=== PATIENT | male | born 1950 | race Caucasian/White ===

== ENCOUNTER → 2017-06-04 | Outpatient (CLI) | payer OTHER ==
[~2017-06-04] MED LIST: ALLOPURINOL 10100 M1 PO; ASPIRIN EC325 M1 PO; ATENOLOL 50MG T50 M1 PO; CARDIZEM CD180 MG; CARDIZEM CD180 MG PO; CARDURA; CARTIA; COUMADIN 3 MG TA3 MG; COUMADIN 5 MG TA5 M1; COZAAR100 MG PO; ELIQUIS5 MG PO; ENOXAPARIN120 MG/0.8 SQ; FLECAINIDE ACE150 MG PO; INDOMETHACIN 2525 MG PO; PERCOCET 5-3251 EACH PO; SIMVASTATIN40 MG PO; ZOCOR; ZOCOR 10 MG TAB10 MG
--- NOTE | ~2017-06-04 | 2DMMODE ---
[facility] [address] [place] [address] 2 D/M-MODE ECHOCARDIOGRAM Name: JANAK GRIMM CASH Room #: REG [facility]#: [id number] Admission: 06/04/17 Attend Phys: Nathan Menendez MD Discharge: Date of : 50 Date of Service: 06/04/17 1021 Report #: [id number] THIS REPORT FOR: //name// APPROVED REPORT Study performed: 06/04/2017 09:00:25 EXAM: Comprehensive 2D, Doppler, and color-flow Echocardiogram Patient Location: Echo lab Status: routine BSA: 2.40 BP: 182/100 mmHg Other Information Study Quality: Technically Difficult Technically limited study due to body habitus. Indications Atrial Fibrillation Echo Enhancing Agent Indication: Endocardial border delineation Agent(s) / Amount(s) Used: Optison 3 cc 2D Dimensions RVDd: 31.21 mm LVEF(%): 63.11 (>50%) IVSd: 14.96 (7-11mm) LVOT Diam: 18.81 (18-24mm) LVDd: 43.97 mm PWd: 13.93 (7-11mm) Ascending Ao: 33.03 (22-36mm) LVDs: 29.03 (25-40mm) Aortic Root: 38.76 mm IVC: 18.00 mm Garcia's LVEF: 63.11 % Volumes Left Atrial Volume (Systole) Single Plane 4CH: 49.53 mL Single Plane 2CH: 35.75 mL LA ESV Index: 20.00 mL/m2 Aortic Valve AoV Peak Anthony.: 0.82 m/s AO Peak Gr.: 2.68 mmHg LVOT Max P.85 mmHg LVOT Max V: 0.68 m/s ALONSO Vmax: 2.31 cm2 [facility] [place] [address] 2 D/M-MODE ECHOCARDIOGRAM Name: JANAK GRIMM CASH Room #: REG [facility] [id number] Admission: 06/04/17 Attend Phys: Nathan Menendez MD Discharge: Date of : 50 Date of Service: 06/04/17 1021 Report #: [id number] Mitral Valve E/A Ratio: 1.3 MV Decel. Time: 223.03 ms MV E Max Anthony.: 0.67 m/s MV A Anthony.: 0.52 m/s MV PHT: 64.68 ms IVRT: 93.43 ms Pulmonary Valve PV Peak Anthony.: 0.86 m/s PV Peak Gr.: 2.93 mmHg Pulmonary Vein P Vein S: 0.28 m/s P Vein A: 0.27 m/s P Vein D: 0.37 m/s P Vein A Dur.: 121.1 msec P Vein S/D Ratio: 0.76 Tricuspid Valve RAP Estimate: 5.00 mmHg Left Ventricle The left ventricle is normal size. Mild concentric left ventricular hypertrophy. The left ventricular systolic function is normal. The left ventricular ejection fraction is within the normal range. LVEF is 55%. Moderate diastolic dysfunction is present (pseudonormal filling). Right Ventricle The right ventricle is normal size. The right ventricular systolic function is normal. Atria The left atrium size is normal. Previous YUKI 08/11/2016 noted small PFO, unable to detect due to patient body habitus. The right atrium size is normal. Aortic Valve The aortic valve is normal in structure. No aortic regurgitation is present. There is no aortic valvular stenosis. Mitral Valve The mitral valve is normal in structure. There is no mitral valve regurgitation noted. No evidence of mitral valve stenosis. Tricuspid Valve The tricuspid valve is normal in structure. There is no tricuspid [facility] [address] [place] [address] 2 D/M-MODE ECHOCARDIOGRAM Name: LINDAJANAK ÁLVAREZ CASH Room #: REG CL [facility]#: [id number] Admission: 06/04/17 Attend Phys: Nathan Menendez MD Discharge: Date of : 50 Date of Service: 06/04/17 1021 Report #: [id number] valve regurgitation noted. Unable to assess PA pressure. Pulmonic Valve Pulmonic valve is not well visualized. Trace pulmonic regurgitation noted per doppler. Great Vessels The aortic root is normal in size. IVC is normal in size and collapses >50% with inspiration. <Conclusion> The left ventricle is normal size. Mild concentric left ventricular hypertrophy. The left ventricular systolic function is normal. Moderate diastolic dysfunction is present (pseudonormal filling). The right ventricle is normal size. There is no aortic valvular stenosis. There is no mitral valve regurgitation noted. <ELECTRONICALLY SIGNED> By: Nathan Menendez MD 06/04/17 1021 1021 1021 Nathan Menendez MD /INF
== END ==
LOC: CV 05-18 11:22
DX: I50.30 Unspecified diastolic (congestive) heart failure (principal); I51.7 Cardiomegaly; I48.91 Unspecified atrial fibrillation

== ENCOUNTER → 2018-03-30 | Outpatient (CLI) | payer OTHER ==
[~2018-03-30] MED LIST changes: +GREENS PO; +TURMERIC500 M2 PO; +VITAMIN D1000 UNI1 PO; +[UNRECOGNIZED DRUG - OTHER] PO
--- NOTE | ~2018-03-30 | P ---
[facility] [place] [address] [place] [address] PROCEDURE REPORT Name: ALFAJANAK CASH Room #: REG [facility]#: [id number] Admission: 03/30/18 Attend Phys: Fahad Guzman MD Discharge: Date of : 50 Report #: [id number] THIS REPORT FOR: //name// CC: Nathan Arnold DATE OF SERVICE: 03/30/2018 PREOPERATIVE DIAGNOSES: 1. Atrial fibrillation. 2. Palpitations. HISTORY OF PRESENT ILLNESS: The patient is a 68-year-old with history of prior AFib with recurrent palpitations, who is here for implantation of an implantable loop recorder. PROCEDURES PERFORMED: Implantation of loop recorder, CPT CODE 42535. DESCRIPTION OF PROCEDURE: The patient underwent informed consent. Risks, benefits were reviewed. Next, I injected lidocaine at the site of the procedure. Incision was made. The device was the skin. A single suture was placed using 3-0 Vicryl and Steri-Strip was placed. There were no complications and no significant bleeding. The implanted device was a [employer], model number [id number], serial number [id number]. CONCLUSIONS: Successful implantation of an implantable loop recorder. <ELECTRONICALLY SIGNED> By: Fahad Guzman MD 04/01/18 0853 [id number] MD abner Figueroa
[2018-03-30 12:38] VITALS: BP 153/93
== END | disposition home or self-care (01) ==
LOC: CATH 09:18
DX: I48.91 Unspecified atrial fibrillation (principal); R00.2 Palpitations; Z88.8 Allergy status to other drugs, medicaments and biological substances; Z79.01 Long term (current) use of anticoagulants

== ENCOUNTER 2018-11-01 06:35 | Observation (INO) | payer OTHER ==
[~2018-11-01] VITALS: Ht 182.9 cm; Wt 125.2 kg
--- NOTE | ~2018-11-01 | P ---
[facility] [place] [address] [place] [address] PROCEDURE REPORT Name: JANAK GRIMM CASH Room #: 207-P [facility] Francisco J Solorio#: [id number] Admission: 11/01/18 Attend Phys: Fahad Guzman MD Discharge: 11/02/18 Date of : 50 Report #: [id number] THIS REPORT FOR: //name// CC: Nathan Arnold DATE OF SERVICE: 11/02/2018 PREOPERATIVE DIAGNOSIS: Atrial fibrillation. POSTOPERATIVE DIAGNOSIS: Atrial fibrillation. The patient is a 68-year-old with history of atrial fibrillation, status post prior ablation in 2004 with clinical recurrence. He is here for repeat AFib ablation. PROCEDURES PERFORMED: 1. Atrial fibrillation ablation, CPT code 55893. 2. Programmed stimulation pacing after IV drug infusion, CPT code 86695. 3. 3D mapping, CPT code 35892. 4. Intracardiac echocardiogram, CPT code 63812. 5. Focal ablation, CPT code 23823. ANESTHESIA: The patient underwent general anesthesia with no anesthesia related complications. DESCRIPTION OF PROCEDURE: The patient underwent informed consent. We discussed the details of the procedure including the risks, which include, but not limited to, bleeding, infection, vascular damage and cardiac perforation. He understood these risks and is willing to proceed. The patient was brought to the EP laboratory in a fasting and sedated state, prepped and draped in a sterile fashion. I obtained access to the bilateral femoral veins and placed 8-Central African, 6-Central African, 7-Central African and 9-Central African short sheaths using the modified Seldinger technique. Next, under fluoroscopy, I placed a decapolar catheter easily in the coronary sinus and then placed an ice catheter into the right atrium. Using intracardiac ultrasound, I evaluated the anatomy of the left atrium. He had evidence of a left common ostium and right superior and right inferior pulmonary veins. This 3D image was merged with his cardiac CT scan and the patient was then systemically heparinized and a transseptal was performed using an SL1 sheath and a Letha needle. I was able to get my wire across into the left atrium, but could not advance the sheath into the left atrium. Therefore, I used a 6 mm x 4 cm balloon to dilate the interatrial septum and then, I was able to advance my sheath into the left atrium. Next, I created a detailed 3D voltage map of the left atrium, which showed that the [facility] [address] [place] [address] PROCEDURE REPORT Name: LINDAHENRIJANAK CASH Room #: 207-P [facility] Francisco J Solorio#: [id number] Admission: 11/01/18 Attend Phys: Fahad Guzman MD Discharge: 11/02/18 Date of : 50 Report #: [id number] right-sided veins were isolated, but the right common ostium was reconnected. A second transseptal was then performed using another SL1 sheath and via this sheath, I placed a [employer] Rivas SmartTouch ThermoCool ablation catheter. Next, I re-isolated the right common ostium, which was reconnected along the posterior and inferior aspect of the ostium, this isolated quite nicely. There was then evidence of entrance and exit block. I reinforced my line along this region. Next, I performed a roofline along the left atrium and I connected the left common ostium to the right superior pulmonary veins. Ablation was completed until there was no further potentials in this region and appeared there was now block across the roof. Pre ablation, the patient was in sinus rhythm with a sinus cycle length of 1060 milliseconds, IA interval 185 milliseconds, QRS duration 90 milliseconds, QT interval 400 milliseconds. Post ablation, I performed an EP study. The patient was started on isoproterenol 2 mcg. AV block was noted at 300 milliseconds. Atrial ERP was noted at 240 milliseconds at a [address] cycle length. Aggressive atrial burst pacing was performed and there was no atrial fibrillation. There were some short bursts of atrial tachycardia lasting 5 beats. As such, the isoproterenol was discontinued and post ablation, his atrial rate was 885 milliseconds, IA interval 190 milliseconds, QRS duration 90 milliseconds, QT interval 450 milliseconds. As such, I used intracardiac ultrasound to verify there is no pericardial effusion. Next, the patient received systemic protamine and once ACT was within acceptable range, all catheters and sheaths were pulled and hemostasis was obtained. The patient awoke neurologically and hemodynamically intact with no complications. CONCLUSIONS: 1. Successful atrial fibrillation ablation with successful re-isolation of the left common ostium. 2. Successful creation of a roofline with evidence of block. 3. Normal electrophysiology study with no inducible arrhythmias on or off isoproterenol infusion. By: [id number] Fahad Guzman MD /nt
--- NOTE | ~2018-11-01 | D ---
[facility] [place] [address] [place] [address] DISCHARGE SUMMARY Name: JANAK GRIMM CASH Room #: 207-P [facility] Francisco J MNona#: [id number] Admission: 11/01/18 Attend Phys: Fahad Guzman MD Discharge: Date of : 50 Report #: [id number] THIS REPORT FOR: //name// CC: Nathan Guzman Cale Arnold DISCHARGE DIAGNOSIS: Atrial fibrillation. PROCEDURES PERFORMED: AFib ablation. HISTORY OF PRESENT ILLNESS: The patient is a 68-year-old male with a history of recurrent atrial fibrillation, status post prior AFib ablation back in 2014. He was here for repeat ablation as he has had recent recurrence of his atrial fibrillation. The patient underwent successful repeat ablation. He was found to have reconnection of his left common ostium. Both right-sided veins remained isolated. I re-isolated the left common ostium and also created a roofline as well. An EP study on isoproterenol showed no other inducible arrhythmias post ablation. HOSPITAL COURSE: The patient was monitored in the CCU overnight. He had no events. On telemetry, he remained in sinus rhythm. On the day of discharge, he denied any chest pain, shortness of breath, fevers, chills or groin discomfort. PHYSICAL EXAMINATION: GENERAL: On exam, in general, he was in no acute distress; alert and oriented x 3. HEENT: Oropharynx was clear. NECK: Supple, with no thyromegaly. HEART: Regular rate and rhythm, with no murmurs, rubs or gallops. LUNGS: Clear to auscultation bilaterally. ABDOMEN: Soft, nontender and nondistended. GENITOURINARY: His bilateral groins showed no hematoma or bruising. SUMMARY: As such, he was deemed stable for discharge home. Discharge instructions were reviewed. He will continue on Eliquis 5 mg b.i.d. and flecainide 50 b.i.d. He will see my nurse practitioner in 2 weeks and see me back in 3 months. We discussed the importance of weight loss and having a sleep study to treat any undiagnosed sleep apnea. By: [id number] Fahad Guzman MD /nt
[2018-11-01 07:13] VITALS: BP 168/88
[2018-11-01 07:19] LABS: ABSOLUTE NEUTROPHILS 4.4 thou/uL (1.4-8.2); BASOPHILS 0.8 % (0.0-2.0); EOSINOPHILS 2.8 % (0.0-3.0); HEMATOCRIT 46.6 % (42.0-52.0); HEMOGLOBIN 15.3 gm/dL (14.0-18.0); LYMPHOCYTES 28.4 % (24.0-44.0); MCH 29.1 pg (26.0-34.0); MCHC 32.8 g/dL (28.0-37.0); MCV 88.7 fL (80.0-100.0); MONOCYTES 6.3 % (1.0-8.0); PLATELET COUNT 228 thou/uL (150-400); POLYS 61.7 % (36.0-66.0); RBC 5.26 mil/uL (4.50-6.00); RDW 13.7 % (10.5-14.5); WBC 7.1 thou/uL (4.0-11.0)
[2018-11-01] MEDS ORDERED: ELIQUIS5 MG PO (07:20)
[2018-11-01] MEDS ORDERED: FLECAINIDE ACET50 M1 PO (07:20)
[2018-11-01 07:21] LABS: CALCIUM 9.5 mg/dL (8.5-10.1); POTASSIUM 4.5 mmol/L (3.5-5.1)
[2018-11-01 07:27] LABS: ALBUMIN 3.7 g/dL (3.4-5.0); TOTAL BILIRUBIN 0.4 mg/dL (<0.1-1.0); TOTAL PROTEIN 8.1 g/dL (6.4-8.2)
[2018-11-01 07:45] LABS: APTT 24.4 Seconds (24.5-32.8); INR 1.1; PROTIME 10.9 Seconds (9.3-11.4)
[2018-11-01 13:04] VITALS: BP 138/81
--- NOTE | 2018-11-01 13:25 | NUR ---
PT ARRIVED TO UNIT AT APPROX 1300 WITH SIGNIFICANT OTHER AND BELONGINGS. PT AOX4, VSS, NO C/O PAIN, IN NO APPARENT DISTRESS. GROIN SITES POST ABLATION CDI, NO HEMATOMA. PT ON BEDREST PER ORDER. TELEMETRY PUT ON, ADMIT STRIP PRINTED AND DOCUMENTED. WILL ACKNOWLEDGE AND IMPLEMENT ORDERS. WILL CONTINUE TO MONITOR AND FOLLOW POC.
[2018-11-01 16:00] VITALS: BP 134/75
--- NOTE | 2018-11-01 18:13 | NUR ---
PT AOX4, ASSESSMENTS CHARTED. MEDS GIVEN PER NOV. PT CONTINUES TO BE ON BEDREST POST ABLATION. VSS, GROIN SITES CDI, NO HEMATOMA. PT DENIES PAIN, CHEST PAIN, AND ANY OTHER CONCERNS. PT NSR ON MONITOR. SIGNIFICANT OTHER AT BEDSIDE. NO S/SX OF CARDIAC OR RESP DISTRESS NOTED. WILL CONTINUE TO MONITOR AND FOLLOW POC.
[2018-11-01 20:15] VITALS: BP 146/75
[2018-11-02 00:20] VITALS: BP 135/63
--- NOTE | 2018-11-02 03:37 | NUR ---
ASSUMED PT CARE AT 1900. PT A/OX4, VITAL SIGNS STABLE, ASSESSMENT CHARTED. ASSESSMENT CHARTED. LEFT AND RIGHT GROIN SITES DRY, CLEAN AND INTACT. PT AMBULATED TO THE BATHROOM INDEPENDEDNTLY. NO COMPLAINTS OF PAIN/CHEST PAIN. NSR ON THE MONITOR. PROGRESSING TOWARD PLAN OF CARE. WILL CONTINUE TO MONITOR.
[2018-11-02 03:54] VITALS: BP 145/65
[2018-11-02 07:40] VITALS: BP 131/64
[2018-11-02 09:03] VITALS: BP 131/64
--- NOTE | 2018-11-02 09:33 | NUR ---
ASSUMED CARE OF PT AT SHIFT CHANGE. ASSESSMENT CHARTED. MEDS GIVEN PER NOV. PT AOX4, NO C/O PAIN, UP AD RADHA, VOIDING FREELY. DENIES CHEST PAIN, SOA, OR ANY OTHER CONCERNS. POST CATH GROIN SITES CDI, NO HEMATOMA. NO S/SX OF CARDIAC OR RESP DISTRESS NOTED. NSR ON MONITOR. DC ORDERS ACKNOWLEDGED AND IMPLEMENTED. PT LEFT UNIT AT APPROX 0928 BY WHEELCHAIR WITH TRANSPORT AND WITH SIGNIFICANT OTHER. IV REMOVED, TELE OFF, PT LEFT WITH ALL BELONGINGS.
[2018-11-02 09:36] VITALS: BP 131/64
== END 2018-11-02 09:28 | disposition home or self-care (01) ==
LOC: CATH 06:35 → 2N 12:57 → CATH 14:47 → ENTRNSPT 11-02 09:20 → EDTRNSPTSTS 11-02 09:25 → 2N 11-02 09:28
PROVIDERS: ADMIT Internal Medicine Cardiovascular Disease
DX: I48.91 Unspecified atrial fibrillation (principal); I10 Essential (primary) hypertension; E78.5 Hyperlipidemia, unspecified; F17.200 Nicotine dependence, unspecified, uncomplicated; Z79.899 Other long term (current) drug therapy; Z96.642 Presence of left artificial hip joint
CPT/HCPCS: 62110; 62900; 65020; 65040; 65131; 70005

== ENCOUNTER → 2020-01-24 | Outpatient (CLI) | payer OTHER ==
[~2020-01-24] MED LIST changes: +FLECAINIDE ACET50 M1 PO
== END ==
LOC: SJCVC 08:58
DX: R94.31 Abnormal electrocardiogram [ECG] [EKG] (principal); I48.19 Other persistent atrial fibrillation; I48.91 Unspecified atrial fibrillation

== ENCOUNTER → 2020-01-30 | Outpatient (CLI) | payer OTHER ==
[~2020-01-30] VITALS: Ht 182.9 cm; Wt 117.9 kg
[~2020-01-30] MED LIST changes: +CARTIA XT120 M1 PO
[2020-01-30 07:25] LABS: ABSOLUTE NEUTROPHILS 2.7 thou/uL (1.4-8.2); BASOPHILS 0.7 % (0.0-2.0); EOSINOPHILS 2.2 % (0.0-3.0); HEMATOCRIT 41.4 % (42.0-52.0); HEMOGLOBIN 13.8 gm/dL (14.0-18.0); LYMPHOCYTES 37.6 % (24.0-44.0); MCH 29.8 pg (26.0-34.0); MCHC 33.3 g/dL (28.0-37.0); MCV 89.6 fL (80.0-100.0); MONOCYTES 7.7 % (1.0-8.0); PLATELET COUNT 207 thou/uL (150-400); POLYS 51.8 % (36.0-66.0); RBC 4.62 mil/uL (4.50-6.00); RDW 14.3 % (10.5-14.5); WBC 5.3 thou/uL (4.0-11.0)
[2020-01-30 07:28] VITALS: BP 137/90
[2020-01-30 07:34] LABS: CALCIUM 8.9 mg/dL (8.5-10.1); CREATININE 1.2 mg/dL (0.7-1.3); POTASSIUM 4.4 mmol/L (3.5-5.1)
[2020-01-30 07:40] LABS: ALBUMIN 3.5 g/dL (3.4-5.0); TOTAL BILIRUBIN 0.6 mg/dL (<0.1-1.0); TOTAL PROTEIN 6.9 g/dL (6.4-8.2)
[2020-01-30 07:46] LABS: APTT 31.9 Seconds (24.5-32.8); INR 1.2
--- NOTE | 2020-02-03 14:28 | P ---
[facility] [place] [address] PROCEDURE REPORT Name: JANAK GRIMM CASH Room #: REG [facility]#: [id number] Admission: 01/30/20 Attend Phys: Fahad Guzman MD Discharge: Date of : 50 Report #: [id number] THIS REPORT FOR: cc: Cale Arnold,Fahad Anthony MD ~ CC: Fahad Arnold DATE OF SERVICE: 01/30/2020 CARDIOVERSION PREOPERATIVE DIAGNOSIS: Atrial fibrillation. POSTOPERATIVE DIAGNOSIS: Atrial fibrillation. PROCEDURES PERFORMED: DC cardioversion. DESCRIPTION OF PROCEDURE: The patient underwent informed consent. He was prepped in a standard fashion. He was sedated by the Anesthesiology service. He underwent a 200 joule synchronized cardioversion, which failed to restore sinus rhythm. He underwent a second 200 joule synchronized cardioversion, which resulted in sinus rhythm. There were no procedure related complications. CONCLUSIONS: Successful DC cardioversion with religious of sinus rhythm. <ELECTRONICALLY SIGNED> By: Fahad Guzman MD 02/03/20 1428 0830 0907 Fahad Guzman MD /nt
== END | disposition home or self-care (01) ==
LOC: CATH 06:40
PROVIDERS: Internal Medicine Cardiovascular Disease
DX: I48.91 Unspecified atrial fibrillation (principal); I10 Essential (primary) hypertension; E78.5 Hyperlipidemia, unspecified; E66.09 Other obesity due to excess calories; F17.210 Nicotine dependence, cigarettes, uncomplicated; Z90.49 Acquired absence of other specified parts of digestive tract; Z96.642 Presence of left artificial hip joint; Z98.890 Other specified postprocedural states; Z79.899 Other long term (current) drug therapy; Z79.01 Long term (current) use of anticoagulants
CPT/HCPCS: 62110; 62900

== ENCOUNTER → 2020-03-01 | Outpatient (CLI) | payer OTHER | LOC: SJCVC 12:50 | PROVIDERS: ATTEND Internal Medicine Cardiovascular Disease | DX: I48.0 Paroxysmal atrial fibrillation (principal); M10.9 Gout, unspecified; E78.00 Pure hypercholesterolemia, unspecified; I10 Essential (primary) hypertension; F17.200 Nicotine dependence, unspecified, uncomplicated; Z90.49 Acquired absence of other specified parts of digestive tract; Z79.899 Other long term (current) drug therapy ==

== ENCOUNTER → 2020-09-18 | Outpatient (CLI) | payer OTHER ==
--- NOTE | ~2020-09-18 | P ---
[facility] [place] [address] [place] [address] PROCEDURE REPORT Name: JANAK GRIMM CASH Room #: REG [facility]min#: [id number] Admission: 09/18/20 Attend Phys: Fahad Guzman MD Discharge: Date of : 50 Report #: [id number] THIS REPORT FOR: cc: Cale Arnold Ronald D. DO Couchonnal, Luis F. MD ~ PROCEDURE: Implantable loop recorder removal. PREOPERATIVE DIAGNOSIS: Implantable loop recorder battery . POSTOPERATIVE DIAGNOSIS: Implantable loop recorder battery . DESCRIPTION OF PROCEDURE: The patient was prepped in a standard and sterile fashion. Incision was made. The device was removed. A single layer of suture was performed and a dressing was placed. There were no procedure related complications. CONCLUSIONS: Successful explantation of a loop recorder. By: [id number] Fahad Guzman MD /nt
[2020-09-18 11:20] VITALS: BP 166/77
== END | disposition home or self-care (01) ==
LOC: CATH 08:00
PROVIDERS: ATTEND Internal Medicine Cardiovascular Disease
DX: Z45.09 Encounter for adjustment and management of other cardiac device (principal); I48.91 Unspecified atrial fibrillation; Z98.890 Other specified postprocedural states; Z79.899 Other long term (current) drug therapy; Z79.01 Long term (current) use of anticoagulants

== ENCOUNTER → 2021-03-28 | Outpatient (CLI) | payer OTHER | LOC: SJCVC 13:01 | PROVIDERS: ATTEND Internal Medicine Cardiovascular Disease | DX: R94.31 Abnormal electrocardiogram [ECG] [EKG] (principal); I44.0 Atrioventricular block, first degree; I48.0 Paroxysmal atrial fibrillation; I48.92 Unspecified atrial flutter; I10 Essential (primary) hypertension; E78.5 Hyperlipidemia, unspecified; M10.9 Gout, unspecified; E78.00 Pure hypercholesterolemia, unspecified; F17.200 Nicotine dependence, unspecified, uncomplicated; Z96.642 Presence of left artificial hip joint; Z79.899 Other long term (current) drug therapy; Z72.89 Other problems related to lifestyle; Z88.8 Allergy status to other drugs, medicaments and biological substances ==

== ENCOUNTER → 2021-10-01 | Outpatient (CLI) | payer OTHER | LOC: SJCVC 09:53 | PROVIDERS: ATTEND Internal Medicine Cardiovascular Disease | DX: R94.31 Abnormal electrocardiogram [ECG] [EKG] (principal); I44.0 Atrioventricular block, first degree; I48.0 Paroxysmal atrial fibrillation; I48.92 Unspecified atrial flutter; I10 Essential (primary) hypertension; E78.00 Pure hypercholesterolemia, unspecified; F17.200 Nicotine dependence, unspecified, uncomplicated; Z79.899 Other long term (current) drug therapy; Z88.8 Allergy status to other drugs, medicaments and biological substances; Z72.89 Other problems related to lifestyle ==